=== PATIENT | male | born 1990 | race Caucasian/White ===

== ENCOUNTER 2021-01-19 22:51 | Emergency (ER) | payer SELFPAY ==
--- NOTE | ~2021-01-19 | XR_ITS ---
EXAMINATION: RIGHT HAND 3 VIEWS CLINICAL INFORMATION: Pain following trauma. Laceration. COMPARISON: None. TECHNIQUE: PA, lateral, oblique views of the right hand were obtained. FINDINGS: There are no fractures or dislocations. There is no significant soft tissue swelling. XR/XR hand wrist RT IMPRESSION: Unremarkable right hand radiographs.
[2021-01-19 22:53] VITALS: BP 120/87; BP 138/75; PULSE 73; PULSE 80; RESP 18; TEMP 36.4; O2SAT 97; BMI 30.9
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
[2021-01-20] MEDS: Diphth,Pertus(ACell),Tet Adult 0.5 ML SYRINGE IM (01:12)
[2021-01-20 01:17] VITALS: RESP 18
== END 2021-01-20 01:37 | disposition home or self-care (01) ==
PROVIDERS: Emergency Provider Internal Medicine
DX: F10.10 Alcohol abuse, uncomplicated (principal); Y90.9 Presence of alcohol in blood, level not specified; S60.416A Abrasion of right little finger, initial encounter; W22.8XXA Striking against or struck by other objects, initial encounter; F17.200 Nicotine dependence, unspecified, uncomplicated; Y93.89 Activity, other specified; Y92.018 Other place in single-family (private) house as the place of occurrence of the external cause; Y99.9 Unspecified external cause status
CPT/HCPCS: 73110; 73130; 90471; 90715; 99284

== ENCOUNTER 2022-08-08 12:13 | Emergency (ER) | payer OTHER, SELFPAY ==
--- NOTE | ~2022-08-08 | XR_ITS ---
EXAMINATION: CERVICAL SPINE 2 VIEWS. LUMBAR SPINE 2 VIEWS CLINICAL INFORMATION: Neck pain. Back pain COMPARISON: None TECHNIQUE: 2 views C-spine. 2 views lumbar spine FINDINGS: Cervical spine: Prevertebral soft tissues are normal. Vertebral body heights and disc spaces preserved. No fracture or destructive process. The lateral masses of C1 and odontoid are intact. Lumbar spine: No fracture or destructive process. Vertebral body heights and disc space heights preserved. XR/XR cervical spine 2V IMPRESSION: Unremarkable studies.
--- NOTE | ~2022-08-08 | XR_ITS ---
EXAMINATION: CERVICAL SPINE 2 VIEWS. LUMBAR SPINE 2 VIEWS CLINICAL INFORMATION: Neck pain. Back pain COMPARISON: None TECHNIQUE: 2 views C-spine. 2 views lumbar spine FINDINGS: Cervical spine: Prevertebral soft tissues are normal. Vertebral body heights and disc spaces preserved. No fracture or destructive process. The lateral masses of C1 and odontoid are intact. Lumbar spine: No fracture or destructive process. Vertebral body heights and disc space heights preserved. XR/XR lumbar spine 2-3V IMPRESSION: Unremarkable studies.
[2022-08-08 12:45] VITALS: BP 142/89; PULSE 74; RESP 16; TEMP 37; O2SAT 98; BMI 25.6
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
[2022-08-08 14:56] VITALS: BP 130/89; PULSE 77; RESP 18; TEMP 36.9; O2SAT 100
[2022-08-08] MEDS: Acetaminophen 325 MG TABLET 975 MG PO (15:11)
== END 2022-08-08 16:46 | disposition home or self-care (01) ==
PROVIDERS: Emergency Provider Student in an Organized Health Care Education/Training Program
DX: S39.012A Strain of muscle, fascia and tendon of lower back, initial encounter (principal); S16.1XXA Strain of muscle, fascia and tendon at neck level, initial encounter; V43.52XA Car driver injured in collision with other type car in traffic accident, initial encounter; Y93.89 Activity, other specified; Y92.414 Local residential or business street as the place of occurrence of the external cause; Y99.9 Unspecified external cause status
CPT/HCPCS: 72040; 72100; 99283; 99284

== ENCOUNTER 2023-05-22 09:08 | Emergency (ER) | payer OTHER, SELFPAY ==
--- NOTE | ~2023-05-22 | XR_ITS ---
EXAMINATION: XR LUMBAR SPINE, 3 VIEWS XR SACRUM AND COCCYX, 3 VIEWS CLINICAL INFORMATION: Back pain COMPARISON: Our spine radiograph from 08/08/2022 TECHNIQUE: 3 views lumbar spine 3 views of the sacrum and coccyx FINDINGS: 5 nonrib-bearing lumbar-type vertebral bodies. No acute visible fracture or dislocation. Bilateral sacroiliac joints are patent. Vertebral body heights and disc spaces are maintained. Posterior elements are intact. Paraspinal soft tissues are unremarkable. Bowel gas is unremarkable. Pelvic phleboliths are noted. XR/XR sacrum coccyx min 2V IMPRESSION: 1. No acute visible fracture or dislocation. 2. Bilateral sacroiliac joints are patent.
--- NOTE | ~2023-05-22 | XR_ITS ---
EXAMINATION: XR LUMBAR SPINE, 3 VIEWS XR SACRUM AND COCCYX, 3 VIEWS CLINICAL INFORMATION: Back pain COMPARISON: Our spine radiograph from 08/08/2022 TECHNIQUE: 3 views lumbar spine 3 views of the sacrum and coccyx FINDINGS: 5 nonrib-bearing lumbar-type vertebral bodies. No acute visible fracture or dislocation. Bilateral sacroiliac joints are patent. Vertebral body heights and disc spaces are maintained. Posterior elements are intact. Paraspinal soft tissues are unremarkable. Bowel gas is unremarkable. Pelvic phleboliths are noted. XR/XR lumbar spine 2-3V IMPRESSION: 1. No acute visible fracture or dislocation. 2. Bilateral sacroiliac joints are patent.
[2023-05-22 09:41] VITALS: BP 135/90; PULSE 65; RESP 16; TEMP 36.8; O2SAT 99; BMI 23.7
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
[2023-05-22] MEDS: Ketorolac Tromethamine 30 MG/ML VIAL IM (10:11)
== END 2023-05-22 11:52 | disposition home or self-care (01) ==
PROVIDERS: Emergency Provider Emergency Medicine
DX: M62.830 Muscle spasm of back (principal); M54.50 Low back pain, unspecified
CPT/HCPCS: 72100; 72220; 96372; 99283; 99284; J1885

== ENCOUNTER 2024-04-07 05:40 | Emergency (ER) | payer SELFPAY ==
--- NOTE | ~2024-04-07 | CT_ITS ---
EXAMINATION: CT FACIAL BONES WITH CONTRAST CLINICAL INFORMATION: Upper face and lip swelling. Rule out dental abscess. COMPARISON: None available. TECHNIQUE: Multidetector helical imaging acquired in the axial plane following intravenous administration of 85 mL of Omnipaque 350. This CT examination was performed using dose optimization techniques as appropriate, variously including the following: *Automated exposure control *Adjustment of mA and/or kV according to patient size (this includes techniques or standardized protocols for targeted exams where dose is matched to indication/reason for exam; i.e. extremities or head) *Use of iterative reconstruction technique DLP: 297 mGy-cm FINDINGS: There is a 1 x 2 cm periapical abscess with peripheral enhancement involving the right central maxillary incisor with additional erosion of the lamina dura around the adjacent left central maxillary incisor and right lateral maxillary incisor. There is resorption of bone along the buccal and palatal cortices of the maxillary alveolus at this site of the periapical abscess. In addition, the patient has also had prior root canals of the these affected teeth. Superficial to the focally eroded maxillary osseous buccal cortex is significant gingivobuccal soft tissue swelling, also involving the base of the nasal columella. There is also focal bony erosion superiorly exposing the floor of the nasal cavities at the insertion of the bony nasal septum. The periapical abscess slightly bulges into the mucosa along the hard palate posteriorly. There is [id number] mucosal thickening in the paranasal sinuses. The orbits are normal. The parotid and submandibular glands are homogeneous in attenuation. The carotid sheath vasculature opacifies normally. No upper cervical adenopathy is seen. No abnormal enhancement is seen within the imaged pharyngeal mucosal space or supraglottic larynx. The middle ear cavities and mastoid air cells are well aerated. The imaged portions of the brain demonstrate no acute abnormality. CT/CT facial bones w IV con IMPRESSION: Imaging findings indicative for a failed root canal of the right central maxillary incisor with a 1 x 2 cm periapical abscess also eroding the lamina dura of the right lateral maxillary incisor and left central maxillary incisor. Significant gingivobuccal soft tissues swelling anteriorly as described.
[2024-04-07 05:50] VITALS: BP 153/93; PULSE 89; RESP 18; TEMP 36.7; O2SAT 97; BMI 23.7
--- NOTE | 2024-04-07 05:56 | ED.GENADULT ---
HPI - General Adult General Chief complaint: General Medical Stated complaint: face swollen Time Seen by Provider: 04/07/24 05:56 Source: patient Mode of arrival: ambulatory Limitations: no limitations History of Present Illness ED Provider: Dr. Joseph Vincent HPI narrative: 33-year-old male with no significant past medical history who presents emergency department for evaluation of swelling and pain of his upper lips and upper aspect of his mouth. Patient states that yesterday was feeling fatigued. He had subjective fever and chills. States that he also had a cough, felt short of breath and dyspnea on exertion. This morning he states that he woke up and he had severe pain in his mouth and upper lips. He states that his upper lips were swollen. He states he also noticed a blister in the roof of his mouth that is very painful. He denied any preceding dental pain. Patient states that he ate chicken last night and did not have anything unusual to eat. He has not taking antibiotics or drugs. He states that he has noticed a blister on the roof of his mouth and it is severely painful. Related Data Previous Rx's ?Medication ?Instructions ?Recorded cyclobenzaprine 10 mg tablet 10 mg PO TID PRN muscle spasm #15 08/08/22 tabs ibuprofen 600 mg tablet 600 mg PO Q8H PRN pain #30 tabs 08/08/22 cyclobenzaprine 10 mg tablet 10 mg PO TID PRN muscle spasm #15 05/22/23 tabs ibuprofen 600 mg tablet 600 mg PO Q6H PRN pain #45 tabs 05/22/23 amoxicillin 875 mg-potassium 1 tab PO BID #20 tabs 04/07/24 clavulanate 125 mg tablet ibuprofen 600 mg tablet 600 mg PO Q6H PRN pain #14 tabs 04/07/24 Allergies Allergy/AdvReac Type Severity Reaction Status Date / Time shrimp Allergy Unknown RASH Verified 04/07/24 05:53 Review of Systems Review of Systems: Yes all other systems are reviewed and are negative [facility] Past Medical History [facility] Narrative: Social history: The patient does vape tobacco products. He does drink alcohol on the weekends. He smokes marijuana. He denies injection drug use. Medical History No known health problems Social History Social History Alcohol intake: current Alcohol intake frequency: 3 or more drinks per day Smoked in Last 30 Days: No Use of substances other than those prescribed or required for medical reasons: No Advance Directives: No Advance Directives Information Provided: No Do you have a plan to hurt others: No Plan Physical Exam ED Vital Signs: Vital Signs - 24 hr 04/07/24 05:50 04/07/24 06:00 04/07/24 10:07 Temperature 98.1 F 98.7 F 98.9 F Pulse Rate 89 84 72 Respiratory Rate 18 19 18 Blood Pressure 153/93 H 145/95 H 127/87 Pulse Oximetry 97 97 96 Oxygen Delivery Method Room Air Room Air Room Air 04/07/24 12:23 Temperature 98.9 F Pulse Rate 72 Respiratory Rate 18 Blood Pressure 127/87 Pulse Oximetry 96 Oxygen Delivery Method Room Air BMI result Body Mass Index 23.7 Vital signs revealed an elevated blood pressure of 153/93 Exam: General: Awake, alert in no distress patient has swelling of his upper lips, t the patient has a 1 cm blister to the mid aspect of the hard palate, this blister is soft and tender to palpation Head: Normocephalic, atraumatic EENT: PERRL, Lids : Swelling of the upper lips sparing the lower lips who fell off call the nausea but and I did not vomit and I have yes okay, sclera normal, conjunctiva normal, nose normal , ears normal, throat without erythema or exudates Neck: Supple, no adenopathy Lung: breath sounds symmetric, no wheezing, rales or rhonchi Chest: symmetric movement, nontender Heart: regular rate and rhythm, normal S1, S2 no murmurs or rubs Abdomen: soft, non-tender, nondistended, normal bowel sounds Back: no vertebral tenderness, no CVAT Extremities: no deformities, moves all extremities symmetrically Neuro: Awake, alert, oriented, normal speech, cranial nerves intact, moves all extremities symmetrically Psych: Pleasant, cooperative Course Reevaluation(s) Reevaluation #1: This patient was signed out to me by the previous emergency physician pending the results of a CT scan of the face to look for a facial infection. CT scan suggests a periapical abscess related to a root canal of tooth 8. I was able to contact the patient's dental office. The patient had root canal 1 year ago at [facility] in [place]. The on-call dentist for that office believes the patient should be able to be seen through their system tomorrow. Apparently the dentist who performed the surgery we will be in the [place] office tomorrow. The patient was therefore given the phone number for both the [facility] dental clinic in [place] and [place]. Patient should call in the morning to be seen tomorrow. He has been prescribed Augmentin and ibuprofen. Medications Administered Discontinued Medications Generic Name Dose Route Start Last Admin Trade Name Freq PRN Reason Stop Dose Admin Acetaminophen 975 mg 04/07/24 11:37 04/07/24 12:16 Acetaminophen 325 Mg Tablet PO 04/07/24 11:38 975 mg ONCE ONE Administration Amoxicillin/Clavulanate Potassium 875 mg 04/07/24 11:35 04/07/24 12:16 Amoxicillin/Potassium Clav 875 Mg Tablet PO 04/07/24 11:36 875 mg ONCE ONE Administration Sodium Chloride 1,000 mls @ 999 mls/hr 04/07/24 06:05 04/07/24 08:24 Ns IV 04/07/24 07:05 Infused .Q1H1M STA Infusion Piperacillin Sod/Tazobactam 100 mls @ 200 mls/hr 04/07/24 06:55 04/07/24 08:00 Sod 4.5 gm/ Sodium Chloride IV 04/07/24 07:24 Infused ONCE ONE Infusion Vancomycin HCl 2,000 mg in 500 mls @ 250 mls/hr 04/07/24 07:03 04/07/24 12:05 Vancomycin/Ns IV 04/07/24 09:02 Infused ONCE ONE Infusion Ibuprofen 600 mg 04/07/24 11:37 04/07/24 12:16 Ibuprofen 600 Mg Tablet PO 04/07/24 11:38 600 mg ONCE ONE Administration Iohexol 100 ml 04/07/24 07:39 04/07/24 07:40 Iohexol 350 Mg/Ml 100 Ml Infus..Btl IV 04/07/24 07:40 85 ml ONCE ONE Administration Ketorolac Tromethamine 15 mg 04/07/24 06:05 04/07/24 06:17 Ketorolac Tromethamine 15 Mg/Ml Vial IVPUSH 04/07/24 06:06 15 mg ONCE STA Administration Medical Decision Making Medical Decision Making [facility] Narrative: 33-year-old male with no significant past medical history who presents emergency department for evaluation of swelling and pain of his upper lips and upper aspect of his mouth. Patient was feeling fatigued yesterday with subjective fever and chills and he woke up this morning with swelling of his upper lip and pain in his roof of his mouth. Physical examination did reveal swelling of the upper lip and a abscess to the hard palate of his mouth. Exam was otherwise unremarkable. Differential diagnosis: ?Includes but is not limited to dental infection, facial infection, allergic reaction, angioedema Following evaluation was ordered: CBC, CMP, lactic acid, CRP, ESR, blood cultures x2, culture of hard palate abscess Patient was initially treated with the following: Toradol 15 mg IV, normal saline x1 L, Zosyn 4.5 g IV, vancomycin Course: 06:56 My independent interpretation patient's laboratory evaluation as follows: WBCs normal 9900 with a normal differential. CMP revealed elevated ALT and alk-phos of 72 and 140. CRP is elevated 1.34. ESR is pending. COVID-19, influenza and RSV were negative. I did anesthetize the patient's hard palate abscess with lidocaine lollipops. I then made an incision with 11. Scalpel and purulent material was expressed from the abscess. Wound culture was sent. CT scan of the face with IV contrast is pending. At the end of my shift, I discuss the patient's presentation with my colleague, Dr. Des Omalley and he assumed care of this patient. Admission/Observation Consideration of admission/observation: Escalation of care including admission/observation considered Lab Data [facility] Lab Attestation statement: I reviewed the patient's lab results. 04/07/24 06:21 04/07/24 06:21 Labs: Lab Results 04/07/24 04/07/24 04/07/24 Range/Units 05:57 06:20 06:21 WBC 9.9 (4.8-10.8) X10*3/uL RBC 5.64 (4.60-5.80) X10*6/uL Hgb 16.7 (14.0-18.0) g/dl Hct 47.1 (42.0-52.0) % MCV 83.5 (80.0-98.0) fL MCH 29.6 (27.0-33.0) pg MCHC 35.5 (31.0-36.0) g/dl RDW 12.2 (11.0-16.0) % Plt Count 285 (160-400) X10*3/uL MPV 10.7 (9.4-12.4) fL Immature Gran % (Auto) 0.2 (0.0-0.4) % Neut % (Auto) 70.9 (45-73) % Lymph % (Auto) 16.8 L (20-40) % [place] % (Auto) 9.4 (2-11) % Eos % (Auto) 2.2 (0-4) % Baso % (Auto) 0.5 (0-2) % Lymph # (Auto) 1.7 (1.2-4.9) X10*3/uL [place] # (Auto) 0.9 (0.1-1.2) X10*3/uL Eos # (Auto) 0.2 (0.0-0.4) X10*3/uL Baso # (Auto) 0.1 (0.0-0.2) X10*3/uL Abs Immat Gran (auto) 0.02 (0.00-0.03) X10*3/uL Absolute Neuts (auto) 7.0 (2.0-8.3) x10*3/uL Absolute Nucleated RBC 0.000 (0.0-0.012) X10*3/uL Nucleated RBC % (auto) 0.0 (0.0-0.2) /100WBC ESR 9 (0-15) MM/HR Sodium 139 (135-145) mmol/L Potassium 3.9 (3.3-5.1) mmol/L Chloride 105 (96-108) mmol/L Carbon Dioxide 26 (22-29) mmol/L Anion Gap 12 (12-20) BUN 10 (9-16) mg/dL Creatinine 1.14 (0.5-1.4) mg/dL Estim Creat Clear Calc 102.2 Estimated GFR > 60 Random Glucose 100 (60-115) mg/dL Lactic Acid 0.9 (0.5-2.0) mmol/L Calcium 9.8 (8.4-10.2) mg/dL Total Bilirubin 0.7 (0.0-1.0) mg/dL AST 32 (5-37) U/L ALT 72 H (0-40) U/L Alkaline Phosphatase 140 H (39-117) U/L C-Reactive Protein 1.34 H (< or = 0.50) mg/dL Total Protein 8.3 H (6.5-8.0) g/dL Albumin 4.4 (3.5-5.0) g/dL Influenza Type A (PCR) NEGATIVE (Negative) Influenza Type B (PCR) NEGATIVE (Negative) RSV RNA Qual (PCR) NEGATIVE (Negative) SARS-CoV-2 RNA (RT-PCR) NEGATIVE (Negative) Discharge Plan Discharge Clinical Impression: Dental infection Patient Disposition: Home, Self-Care Instructions: Dental Abscess (ED) Additional Instructions: The CT scan of your face suggest that you have an infection related to your right upper big tooth. This may be in some ways related to the root canal procedure you had last year. I spoke to the on-call dentist at [facility] in [place]. The on-callisthenics instructor told me that person who performed her procedure last year should be at the [facility] tomorrow. Therefore please call [phone] tomorrow morning to try to reach the [facility] clinic in [place] at [address] If you have any difficulty getting through to this number please contact the [facility] office at [phone]. In either case you should be seen at one of these clinics tomorrow. I have sent a prescription for an antibiotic to your pharmacy. This is a amoxicillin/clavulanate. This is often known as Augmentin. Please take this antibiotic 2 times a day. Next dose this evening. I have sent a prescription for ibuprofen to your pharmacy which you may use for pain. You may also use acetaminophen in addition to the ibuprofen. Please also use warm salt water oral rinses several times a day. Dissolve a teaspoon of salt in a glass of fairly warm water and swish with in your mouth for a few minutes every couple of hours. Bring the disc of your CT scan with you when you see the dentist. If significantly worse you may return to the emergency room here or you may go to the emergency room at [facility]. Prescriptions: New amoxicillin-pot clavulanate 875-125 mg tablet 1 tab PO BID Qty: 20 0RF ibuprofen 600 mg tablet 600 mg PO Q6H PRN (Reason: pain) Qty: 14 0RF No Action ibuprofen 600 mg tablet 600 mg PO Q8H PRN (Reason: pain) Qty: 30 0RF cyclobenzaprine 10 mg tablet 10 mg PO TID PRN (Reason: muscle spasm) Qty: 15 0RF ibuprofen 600 mg tablet 600 mg PO Q6H PRN (Reason: pain) Qty: 45 0RF cyclobenzaprine 10 mg tablet 10 mg PO TID PRN (Reason: muscle spasm) Qty: 15 0RF Stand Alone Forms: Work/School Release Interventions: ED Discharge Assessment Last Done: 04/07/24 12:23 Discharge Date/Time: 04/07/24 12:24 Print Language: Citizen [place]
[2024-04-07 06:00] VITALS: BP 145/95; PULSE 84; RESP 19; TEMP 37.1; O2SAT 97
[2024-04-07] MEDS: Ketorolac Tromethamine 15 MG/ML VIAL IVPUSH (06:17)
[2024-04-07] MEDS: 0.9 % Sodium Chloride 1,000 ML 999 ML IV (06:18)
[2024-04-07 06:33] LABS: MANUAL DIFF FLAG NO
[2024-04-07 06:35] LABS: Basophils Absolute Auto 0.1 X10*3/uL (0.0-0.2); Basophils Percent Auto 0.5 % (0-2); Eosinophils Absolute Auto 0.2 X10*3/uL (0.0-0.4); Eosinophils Percent Auto 2.2 % (0-4); Hematocrit 47.1 % (42.0-52.0); Hemoglobin 16.7 g/dl (14.0-18.0); Imm Gran Abs Auto 0.02 X10*3/uL (0.00-0.03); Imm Gran Pct Auto 0.2 % (0.0-0.4); Lymphocytes Absolute Auto 1.7 X10*3/uL (1.2-4.9); Lymphocytes Percent Auto 16.8 % (20-40); Mean Corpuscular HGB Conc 35.5 g/dl (31.0-36.0); Mean Corpuscular Hemoglobin 29.6 pg (27.0-33.0); Mean Corpuscular Volume 83.5 fL (80.0-98.0); Mean Platelet Volume 10.7 fL (9.4-12.4); Monocytes Absolute Auto 0.9 X10*3/uL (0.1-1.2); Monocytes Percent Auto 9.4 % (2-11); Neutrophils Percent Auto 70.9 % (45-73); Platelet Count 285 X10*3/uL (160-400); Red Blood Count 5.64 X10*6/uL (4.60-5.80); Red Cell Distribution Width 12.2 % (11.0-16.0); White Blood Count 9.9 X10*3/uL (4.8-10.8)
[2024-04-07 06:37] LABS: Lactic Acid 0.9 mmol/L (0.5-2.0)
[2024-04-07 06:38] LABS: Influenza A PCR NEGATIVE (Negative); Influenza B PCR NEGATIVE (Negative); Resp Syncy Virus RNA Qual PCR NEGATIVE (Negative); SARS COV2 PCR INHOUSE NEGATIVE (Negative)
[2024-04-07 06:53] LABS: Alanine Aminotransferase 72 U/L (0-40); Albumin Level 4.4 g/dL (3.5-5.0); Alkaline Phosphatase 140 U/L (39-117); Anion Gap 12 (12-20); Aspartate Amino Transferase 32 U/L (5-37); Bilirubin Total 0.7 mg/dL (0.0-1.0); Blood Urea Nitrogen 10 mg/dL (9-16); C Reactive Protein 1.34 mg/dL (< or = 0.50); Calcium 9.8 mg/dL (8.4-10.2); Carbon Dioxide 26 mmol/L (22-29); Chloride 105 mmol/L (96-108); Creatinine Clr Calc Pharmacy 102.2; Estimated Glomerular Filt Rate > 60; Glucose Random 100 mg/dL (60-115); Potassium 3.9 mmol/L (3.3-5.1); Sodium 139 mmol/L (135-145); Total Protein 8.3 g/dL (6.5-8.0)
[2024-04-07] MEDS: Piperacillin Sodium/Tazobactam 4.5 GM in 0.9 % Sodium Chloride 100 ML IV (07:19)
[2024-04-07 07:25] LABS: Erythrocyte Sedimentation Rate 9 MM/HR (0-15)
[2024-04-07] MEDS: iohexoL 350 MG/ML 100 ML INFUS..BTL IV (07:40)
[2024-04-07] MEDS: vancomycin/NS 2,000 MG/500 ML PLAST..BAG 250 MG IV (08:09)
[2024-04-07 10:07] VITALS: BP 127/87; PULSE 72; RESP 18; TEMP 37.2; O2SAT 96
--- NOTE | 2024-04-07 10:38 | PC.NURSE ---
INTRODUCED SELF TO PT THIS AM, IV ABX HUNG, PT ENDORSED TOLERATING 8/[address] PA[address]ZE [address]ILL IN PLACE IN HIS MOUTH.
[2024-04-07] MEDS: Ibuprofen 600 MG TABLET PO (12:16)
[2024-04-07] MEDS: Amoxicillin/Potassium Clav 875 MG TABLET PO (12:16)
[2024-04-07] MEDS: Acetaminophen 325 MG TABLET 975 MG PO (12:16)
[2024-04-07 12:23] VITALS: BP 127/87; PULSE 72; RESP 18; TEMP 37.2; O2SAT 96
== END 2024-04-07 12:24 | disposition home or self-care (01) ==
PROVIDERS: Emergency Medicine Emergency Medical Services; Emergency Provider Emergency Medicine
DX: K04.7 Periapical abscess without sinus (principal); Z03.818 Encounter for observation for suspected exposure to other biological agents ruled out
CPT/HCPCS: 0241U; 36415; 41800; 70487; 80053; 83605; 85025; 85652; 86140; 87040; 87070; 96361; 96365; 96366; 96375; 99284; J1885; J2543; J3370; Q9967